=== PATIENT | male | born 1960 | race Hispanic/Latino ===

== ENCOUNTER → 2025-04-30 | Outpatient (CLI) | payer MEDICAID ==
[~2025-04-30] MED LIST: METF-444 PO; MULT-1258 PO; RISP3TAB44 PO
--- NOTE | 2025-04-30 12:53 | EKG ---
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
== END | disposition home or self-care (01) ==
LOC: LAB 10:25
PROVIDERS: ATTEND Psychiatry & Neurology Psychiatry
DX: R00.1 Bradycardia, unspecified (principal); Z79.899 Other long term (current) drug therapy
CPT/HCPCS: 93005